=== PATIENT | female | born 2000 | race American Indian/Alaskan Native ===

== ENCOUNTER 2021-10-15 13:30 | Emergency (ER) | payer MEDICAID ==
[2021-10-15] MEDS ORDERED: SODIUM CHLORIDE 0.9% 1000 ML 1,000 ML IV ONE (13:58)
--- NOTE | 2021-10-15 14:03 | Emergency Department Report ---
ED General Adult HPI - General Chief complaint: Arrhythmia/Palpitations Stated complaint: CHEST AND BACK PAIN BLOODPRESSURE Time Seen by Provider: 10/15/21 13:58 Source: patient Mode of arrival: Ambulatory Limitations: No Limitations - History of Present Illness Initial comments: The patient was evaluated in the emergency department for symptoms described in the history of present illness. He/she was evaluated in the context of the global COVID-19 pandemic, which necessitated consideration that the patient might be at risk for infection with the virus that causes COVID-19. Institutional protocols and algorithms that pertain to the evaluation of patients at risk for COVID-19 are in a state of rapid change based on information released by regulatory bodies including the CDC and federal and state organizations. These policies and algorithms were followed during the patient's care in the emergency department. Please note that these policies, procedures and recommendations changed on a rapid basis. 21-year-old -Citizen Of [place] female presents to the emergency room for continued vaginal bleeding post delivery on 09/20/2021. She also complains of palpitations. Patient reports that she has felt tired. States that she has been going to [employer] pad 3/day. Denies any chest pain no shortness of breath. Severity scale (0 -10): 4 - Related Data Previous Rx's Medication Instructions Recorded Last Taken Type Vit-Fe Fumar-FA [ 1 tab PO QDAY #90 tablet 10/15/21 Unknown Rx Vitamin] Allergies Allergy/AdvReac Type Severity Reaction Status Date / Time No Known Allergies Allergy Verified 10/15/21 13:48 ED Review of Systems ROS: Stated complaint: CHEST AND BACK PAIN BLOODPRESSURE Other details as noted in HPI ED Past Medical Hx - Past Medical History Previous Medical History?: Yes Hx Asthma: Yes - Surgical History Past Surgical History?: Yes Additional Surgical History: 09/20/21 - Medications Home Medications: Home Medications Medication Instructions Recorded Confirmed Last Taken Type Vit-Fe Fumar-FA [ 1 tab PO QDAY #90 tablet 10/15/21 Unknown Rx Vitamin] ED Physical Exam - General Limitations: No Limitations General appearance: alert, in no apparent distress - Head Head exam: Present: atraumatic, normocephalic - Eye Eye exam: Present: normal appearance - ENT ENT exam: Present: mucous membranes moist - Neck Neck exam: Present: normal inspection - Respiratory Respiratory exam: Present: normal lung sounds bilaterally. Absent: respiratory distress - Cardiovascular Cardiovascular Exam: Present: regular rate, normal rhythm. Absent: systolic murmur, diastolic murmur, rubs, gallop - GI/Abdominal GI/Abdominal exam: Present: soft, normal bowel sounds - Extremities Exam Extremities exam: Present: normal inspection - Back Exam Back exam: Present: normal inspection - Neurological Exam Neurological exam: Present: alert, oriented X3 - Psychiatric Psychiatric exam: Present: normal affect, normal mood - Skin Skin exam: Present: warm, dry, intact, normal color. Absent: rash ED Course Vital Signs 10/15/21 13:48 Temperature 99.5 F Pulse Rate 111 H Respiratory 18 Rate Blood Pressure 141/66 [Right] O2 Sat by Pulse 97 Oximetry - Reevaluation(s) Reevaluation #1: 10/15/21 16:56 Patient reports she feels much better after having the fluids. ED Medical Decision Making - Lab Data Result diagrams: 10/15/21 14:24 10/15/21 14:24 - Medical Decision Making 21-year-old -Citizen Of [place] female presents to the emergency room for continued vaginal bleeding post delivery on 09/20/2021. She also complains of palpitations. Patient reports that she has felt tired. States that she has been going to [employer] pad 3/day. Denies any chest pain no shortness of breath. H&H is mildly low. No need for transfusion. Patient reports she feels better after having fluids. Patient be discharged home instructed to increase her fluid intake. Discussed with patient she can take a multivitamin. Critical care attestation.: If time is entered above; I have spent that time in minutes in the direct care of this critically ill patient, excluding procedure time. ED Disposition Clinical Impression: Palpitations with regular cardiac rhythm, Anemia Disposition: HOME / SELF CARE / HOMELESS Is pt being admited?: No Does the pt Need Aspirin: No Condition: Stable Instructions: Palpitations Additional Instructions: Blood work shows you have mild anemia. I like for you to start a multivitamin. Please sure to increase your fluid intake. Tiredness can be because of mild anemia or just overwhelmed with the new baby. I encourage you to take time for yourself try to have a balanced meal. Is very important you follow-up with your [facility] call them on Saturday to be sure you have a follow-up appointment. Prescriptions: Vit-Fe Fumar-FA [ Vitamin] 1 tab PO QDAY #90 tablet Referrals: PRIMARY CARE, [Primary Care Provider] - 3-5 Days Your, [facility] [Other] - 3-5 Days Time of Disposition: 17:00
[2021-10-15 14:49] LABS: Basophils % (Auto) 0.5 % (0.0-1.8); Eosinophils % (Auto) 0.4 % (0.0-4.3); Lymphocytes # (Auto) 1.3 K/mm3 (1.2-5.4); Lymphocytes % (Auto) 15.5 % (13.4-35.0); Mean Corpuscular HGB Conc 30 % (30-34); Mean Corpuscular Volume 73 fl (79-97); Monocytes # (Auto) 0.5 K/mm3 (0.0-0.8); Monocytes % (Auto) 5.5 % (0.0-7.3); Platelet Count 511 K/mm3 (140-440); Red Blood Count 3.95 M/mm3 (3.65-5.03); Red Cell Distribution Width 19.9 % (13.2-15.2)
[2021-10-15 14:50] LABS: Hematocrit 28.8 % (30.3-42.9); Hemoglobin 8.6 gm/dl (10.1-14.3)
[2021-10-15 15:13] LABS: Alanine Aminotransferase 18 units/L (7-56); Albumin 4.2 g/dL (3.9-5); BUN/Creatinine Ratio 11; Blood Urea Nitrogen 8 mg/dL (7-17); Calcium 9.5 mg/dL (8.4-10.2); Hemolysis Index 87
[2021-10-15 17:14] VITALS: BP 136/67
--- NOTE | 2021-10-17 11:34 | Electrocardiograph Report ---
[facility] Test Date: 2021-10-15 Test Time: 14:14:51 Pat Name: BERNABE RAM Department: Room: Gender: F [employer]: [place] : [id number] Requested By: OMAR LARSON Order Number: [id number] Reading MD: Dada Roberson Measurements Intervals [place] Rate: 110 P: 34 MD: 163 QRS: 33 QRSD: 87 T: -11 QT: 323 QTc: 436 Interpretive Statements Sinus tachycardia Nonspecific T abnormalities, anterior leads No previous ECG available for comparison Electronically Signed On 10-17-2021 11:33:57 EST by Dada Roberson
== END 2021-10-15 17:14 | disposition home or self-care (01) ==
LOC: ED 13:30
DX: R00.2 Palpitations (principal); D64.9 Anemia, unspecified; J45.909 Unspecified asthma, uncomplicated; Z98.890 Other specified postprocedural states; Z79.899 Other long term (current) drug therapy
CPT/HCPCS: 36415; 80053; 85025; 86850; 86900; 86901; 93005; 96360; 99283; J7030; Q0162